=== PATIENT | male | born 1935 | race Caucasian/White ===

== ENCOUNTER 2017-03-07 17:08 | Emergency (ER) | payer MEDICARE, MEDICAID ==
[~2017-03-07] VITALS: Ht 185.4 cm; Wt 69.0 kg
[~2017-03-07 17:08] MED LIST: ACET500T68 PO; ASPI-630 PO; CALC-30 PO; CARB1TAB20 PO; CEFP200T PO; CHOL100013 PO; DONE10TA7 PO; LACT10SO5 PO; LEVO25TA4 PO; MEMA10TA20 PO; MIRT7.5T8 PO; POTA20TA4 PO; SERT50TA8 PO; TAMS0.4C2 PO
--- NOTE | 2017-03-07 17:32 | PHYS DOC ---
Past History Past Medical History: Dementia, Hypertension, Hypothyroid, Renal Disease, UTI, Other Past Surgical History: Other Alcohol Use: None Drug Use: None Adult General Chief Complaint Chief Complaint: MECHANICAL FALL HPI HPI 81-year-old male presenting to the emergency department today after having head injury. He fell about an hour ago. [facility] staff called EMS who bring the patient in today. Onset today. Location head. Duration constant. No alleviating or exacerbating factors. Associated with hematoma. Review of systems is negative for chest pain shortness of breath neck pain or shoulder pain or any other injuries. He denies being on blood thinners. All other review of systems is negative unless otherwise noted in history of present illness. ED course: 81-year-old gentleman presents the emergency department after sustaining head injury and subsequently developing a hematoma on the side of the head. He comes in by paramedics. Head CT obtained along with CT of the cervical spine. Negative for acute pathology. The patient was then discharged back to his [facility] facility. The patient was then discharged home in stable condition to follow up with their primary care physician over the next 2- 3 days. They were to return if their symptoms worsened or if they were concerned for any reason. [id number] discharge instructions and return precautions were given. Patient's questions were answered to their satisfaction. Patient is comfortable plan. Review of Systems Review of Systems SEE ABOVE Allergies Allergies Allergies Coded Allergies Type Severity Reaction Last Updated Verified I S O L A T I O N *CONTACT* Allergy Unknown 06/20/16 Yes NKMA Allergy Unknown 06/20/16 Yes Physical Exam Physical Exam Constitutional: Well developed, well nourished, no acute distress, non-toxic appearance. [] HENT: Normocephalic, patient has small hematoma on the left forehead. No lacerations present, minor abrasion. Otherwise no depressed skull fractures noted., bilateral external ears normal, oropharynx moist, no oral exudates, nose normal. [] Eyes: PERRLA, EOMI, conjunctiva normal, no discharge. Neck: Normal range of motion, no tenderness, supple, no stridor. Cardiovascular:Heart rate regular rhythm, no murmur [] Lungs & Thorax: Bilateral breath sounds clear to auscultation Abdomen: Bowel sounds normal, soft, no tenderness, no masses, no pulsatile masses. [] Skin: Warm, dry, no erythema, no rash. [] Back: No tenderness, no CVA tenderness. Extremities: No tenderness, no cyanosis, no clubbing, ROM intact, no edema. [] Neurologic: Mental status: Awake oriented and alert x3 Cranial nerves: Extraocular movements intact, eyebrows keri bilaterally smile symmetric, uvula elevation, shoulder shrug intact, tongue protrusion normal DTRs: 2+ Sensation: equal and normal in all extremities Strength: 5/5 in upper and lower extremities bilaterally Psychologic: Affect normal, judgement normal, mood normal. [] EKG EKG [] Radiology/Procedures Radiology/Procedures [] Course & Med Decision Making Course & Med Decision Making Pertinent Labs and Imaging studies reviewed. (See chart for details) [] Dragon Disclaimer Dragon Disclaimer This chart was dictated in whole or in part using Voice Recognition software in a busy, high-work load, and often noisy Emergency Department environment. It may contain unintended and wholly unrecognized errors or omissions. Departure Departure: Impression: Primary Impression: Head injury Disposition: HOME, SELF-CARE Condition: STABLE Referrals: ISACC KAHN DO (PCP) Patient Instructions: Head Injury, Adult Additional Instructions: Thank you for allowing us to participate in your care today. Followup with your primary care physician in 3 days if your symptoms do not improve. Call your Primary Doctor tomorrow and inform them of your visit today. If you do not have a primary care provider you can ask for a list of our primary care providers. Return to the emergency department you have any new or concerning findings. This should be evaluated by the primary care physician and any necessary consulting services for continued management within a few days after discharge. Return to emergency room if you have any new or concerning symptoms including but not limited to fever, chills, nausea, vomiting, intractable pain, any new rashes, chest pain, shortness of air, uncontrolled bleeding, difficulty breathing, and/or vision loss. ALEAH RUTH MD Mar 07, 2017 17:32
--- NOTE | 2017-03-07 17:52 | RAD ---
Indication: Fall with hematoma on the left for head. Axial imaging through the brain and cervical spine was performed without contrast. Sagittal and coronal reformations were also performed. One or more of the following individualized dose reduction techniques were utilized for this examination: 1. Automated exposure control 2. Adjustment of the mA and/or kV according to patient size 3. Use of iterative reconstruction technique CT HEAD: Comparison is made with prior head CT from 06/18/2016. The ventricles and sulci are prominent, consistent with the patient's age. Moderate periventricular hypodensity is seen consistent with senescent change. No sulcal effacement, midline shift or hemorrhage is detected. The cisterns are patent. There is some soft tissue swelling in the left frontal scalp. No calvarial fracture is seen. IMPRESSION: Senescent changes. No acute intracranial process is detected. CT cervical spine: Curvature of the cervical spine is normal. There is minimal retrolisthesis of C3 on C4 and C6 on C7. Significant multilevel degenerative disc and facet disease is seen. No fractures are identified. The odontoid is intact. The prevertebral tissues are normal. IMPRESSION: Cervical spondylosis. No acute bony abnormality is detected. Electronically signed by: Ney Lackey MD (03/07/2017 5:49 PM) [facility]
[2017-03-07 19:15] VITALS: BP 130/69
== END 2017-03-07 19:20 | disposition home or self-care (01) ==
LOC: ER 17:08
DX: S00.93XA Contusion of unspecified part of head, initial encounter (principal); E03.9 Hypothyroidism, unspecified; I10 Essential (primary) hypertension; F03.90 Unspecified dementia, unspecified severity, without behavioral disturbance, psychotic disturbance, mood disturbance, and anxiety; Z87.440 Personal history of urinary (tract) infections; Z91.041 Radiographic dye allergy status; W19.XXXA Unspecified fall, initial encounter; Y93.89 Activity, other specified; Y99.8 Other external cause status; Y92.89 Other specified places as the place of occurrence of the external cause
CPT/HCPCS: 70450; 72125; 99284-25